=== PATIENT | male | born 1950 | race Caucasian/White ===

== ENCOUNTER 2019-12-31 15:02 | Outpatient (CLI) | payer MEDICARE ==
[~2019-12-31 15:02] MED LIST: ATOR20TA66 PO; CETI-90 PO; FLO0.4C PO; KEP500T PO; METO100T14 PO; POTA10TA36 PO
== END 2019-12-31 23:59 | disposition home or self-care (01) ==
LOC: RAD 15:02
PROVIDERS: ATTEND Psychiatry & Neurology Neurology
DX: R13.12 Dysphagia, oropharyngeal phase (principal); R47.1 Dysarthria and anarthria; G20 Parkinson's disease
CPT/HCPCS: 74230

== ENCOUNTER 2021-05-19 09:20 | Day surgery (SDC) | payer MEDICARE ==
[~2021-05-19] VITALS: Ht 167.6 cm; Wt 75.0 kg
[~2021-05-19 09:20] MED LIST changes: -POTA10TA36 PO; +POTA10TA37 PO
[2021-05-19 10:30] VITALS: BP 115/68
[2021-05-19] MEDS ORDERED: RIVA1.5C30 PO (11:18)
[2021-05-19] MEDS ORDERED: SERT-433 PO (11:18)
[2021-05-19] MEDS ORDERED: ASPI-611 PO (11:18)
[2021-05-19] MEDS ORDERED: CARB1TAB24 PO (11:18)
[2021-05-19] MEDS ORDERED: HYDR25TA4 PO (11:18)
[2021-05-19 12:14] VITALS: BP 129/73
[2021-05-19 13:18] LABS: GLUCOSE,CSF 65 MG/DL (40-75); TOTAL PROTEIN,CSF 71 MG/DL (30-60)
[2021-05-19 13:43] LABS: APPEARANCE,CSF CLEAR; CSF RBC 0 /CU MM (0); CSF SUPERNATANT COLOR COLORLESS; CSF VOLUME 36 ML; CSF WBC CT 1 /CU MM (0-5); TUBE# COUNTED 3
== END 2021-05-19 12:25 | disposition home or self-care (01) ==
LOC: SSTAY O 09:20
PROVIDERS: ATTEND Psychiatry & Neurology Neurology
DX: G91.2 (Idiopathic) normal pressure hydrocephalus (principal); Z20.822 Contact with and (suspected) exposure to COVID-19; Z79.899 Other long term (current) drug therapy
CPT/HCPCS: 36415; 62329; 82040; 82042; 82784; 82945; 83916; 84157; 86592; 86617; 87015; 87070; 87102; 87529; 87635; 89051; C9803; 88108

== ENCOUNTER 2021-12-19 01:28 | Inpatient (IN) | payer MEDICARE ==
[~2021-12-19] VITALS: Ht 167.6 cm; Wt 75.0 kg
[~2021-12-19 01:28] MED LIST changes: +ASPI-611 PO; -ATOR20TA66 PO; +CARB1TAB60 PO; +HYDR25TA4 PO; -KEP500T PO; -POTA10TA37 PO; +RIVA1.5C30 PO; +SERT-433 PO
[2021-12-19] MEDS ORDERED: normal saline 1000ML IV soln IVB ONE ×2 (03:40→04:35)
[2021-12-19 06:06] LABS: BASOPHILS % (AUTO) 0.6 % (0-1); EOSINOPHILS % (AUTO) 0.2 % (0-6); HEMATOCRIT 42.6 % (42.0-52.0); HEMOGLOBIN 14.7 g/dl (14.0-17.9); LYMPHOCYTES # (AUTO) 0.6 X10'3 (1.1-4.8); LYMPHOCYTES % (AUTO) 7.7 % (21-51); MEAN CORPUSCULAR HEMOGLOBIN 30.4 PG (27.0-31.0); MEAN CORPUSCULAR HGB CONC 34.4 g/dL (33.0-36.5); MEAN CORPUSCULAR VOLUME 88.4 FL (78-98); MEAN PLATELET VOLUME 9.1 FL (7.4-10.4); MONOCYTES # (AUTO) 0.4 X10'3 (0-0.9); MONOCYTES % (AUTO) 5.7 % (2-12); NEUTROPHILS # (AUTO) 6.3 X10'3 (1.8-7.7); NEUTROPHILS % (AUTO) 85.8 % (42-75); PLATELET COUNT 131 X10'3 (140-440); RED BLOOD COUNT 4.82 X10'6 (4.70-6.10); RED CELL DISTRIBUTION WIDTH 14.5 % (11.5-14.5); WHITE BLOOD COUNT 7.4 X10'3 (4.5-11.0)
[2021-12-19] MEDS ORDERED: pantoprazole 40mg IV 80 MG in normal saline 100ml IV soln 100 ML IV ONE (07:15)
[2021-12-19 07:21] LABS: ALANINE AMINOTRANSFERASE 17 U/L (12-78); ALBUMIN/GLOBULIN RATIO 0.9 (1.1-1.5); ALKALINE PHOSPHATASE 71 IU/L (46-116); ANION GAP 5 (8-16); ASPARTATE AMINO TRANSFERASE 27 U/L (10-37); BILIRUBIN,TOTAL 1.2 MG/DL (0.1-1.0); BLOOD UREA NITROGEN 18 MG/DL (7-18); BUN/CREATININE RATIO 20.5 (5.4-32.0); CALCIUM 8.2 MG/DL (8.5-10.1); CHLORIDE 108 MMOL/L (99-107); CREATININE 0.88 MG/DL (0.60-1.10); GLUCOSE 112 MG/DL (70-104); MAGNESIUM 2.3 MG/DL (1.5-2.4); SODIUM 143 MMOL/L (135-145); TOTAL CARBON DIOXIDE 29.9 MMOL/L (24-32); TOTAL PROTEIN 6.4 G/DL (6.4-8.2); eGFR 85 ML/MIN
[2021-12-19] MEDS ORDERED: potassium CL 10mEq/100ml bag 100 ML IV ONE (08:20)
[2021-12-19] MEDS ORDERED: mag hydrox/Alum hydrox/simeth 30ml oral suspension PO PRN (08:25)
[2021-12-19] MEDS ORDERED: ondansetron/PF 4mg/2ml inj IV PRN (08:25)
[2021-12-19] MEDS ORDERED: magnesium hydroxide 30ml (MOM) UD suspension PO PRN (08:25)
[2021-12-19] MEDS ORDERED: HYDROcodone/acetaminophen 5mg/325mg tablet PO PRN (08:25)
[2021-12-19] MEDS ORDERED: magnesium 4gm in 100ml NS 100 ML IV PRN (08:25)
[2021-12-19] MEDS ORDERED: potassium Cl 40MEQ/1/2NS 520ml 520 ML IV PRN (08:25)
[2021-12-19] MEDS ORDERED: morphine 2 MG/ML inj. syringe IV PRN ×2 (08:25)
[2021-12-19] MEDS ORDERED: potassium Cl 20 mEq SR tablet PO PRN (08:25)
[2021-12-19] MEDS ORDERED: ondansetron 4mg rapidly disintigrating tab PO PRN (08:25)
[2021-12-19] MEDS ORDERED: acetaminophen 325mg tablet PO PRN ×2 (08:25)
[2021-12-19] MEDS ORDERED: magnesium Cl slow-release 64mg tablet PO PRN (08:25)
[2021-12-19] MEDS: K and/or MAG REPLACEMENT MC SCH (09:45)
[2021-12-19] MEDS ORDERED: SERT-434 PO (10:10)
[2021-12-19 11:50] LABS: CLARITY,URINE CLEAR (Clear); COLOR,URINE YELLOW (Yellow); GLUCOSE, URINE NEGATIVE (Neg); KETONES,URINE TRACE mg/dl (Neg); LEUKOCYTE ESTERASE ,URINE NEGATIVE (Neg); NITRITES, URINE NEGATIVE (Neg); OCCULT BLOOD,URINE MODERATE (Neg); PROTEIN,URINE NEGATIVE (Neg); UROBILINOGEN,URINE 0.2 E.U/dL (0.2-1.0)
[2021-12-19 11:53] LABS: UA COLLECTION TYPE CONDOM CATH
[2021-12-19 11:55] LABS: MUCUS STRANDS FEW /LPF (Neg); SQUAMOUS EPITHELIAL CELL,UR FEW /LPF (FEW)
[2021-12-19 11:56] LABS: BACTERIA,URINE FEW /HPF (Neg); TRANSITIONAL EPI CELLS,URINE FEW /HPF; WBC,URINE NONE SEEN /HPF (0-4)
[2021-12-19] MEDS: HYDROcodone/acetaminophen 10/325mg tab PO PRN (16:33)
[2021-12-19] MEDS: docusate sod 100mg capsule PO SCH (20:00)
[2021-12-19] MEDS ORDERED: quetiapine 100mg tablet PO SCH (21:00)
[2021-12-19 21:50] VITALS: BP 141/81
[2021-12-19] MEDS: metoprolol tartrate 50mg tablet PO SCH (21:50)
[2021-12-19] MEDS: carbidoba-levodopa 25-100mg tablet PO SCH (23:37)
[2021-12-19] MEDS: sertraline 50mg tablet PO SCH (23:38)
--- NOTE | 2021-12-20 00:20 | NUR ---
PAGED DR. PETERSON REGARDING +BC GRAM + RODS AND COCCI IN CLUSTERS DRAWN 12/19 0513 RT AC ANAEROBIC BOTTLE.[address] PETERSON GOT THE MESSAGE.NO NEW ORDERS.
[2021-12-20 06:00] VITALS: BP 151/69
[2021-12-20 06:39] LABS: BASOPHILS % (AUTO) 0.8 % (0-1); EOSINOPHILS # (AUTO) 0.2 X10'3 (0-0.9); EOSINOPHILS % (AUTO) 3.4 % (0-6); LYMPHOCYTES # (AUTO) 0.9 X10'3 (1.1-4.8); LYMPHOCYTES % (AUTO) 21.5 % (21-51); MEAN CORPUSCULAR HEMOGLOBIN 30.3 PG (27.0-31.0); MEAN CORPUSCULAR VOLUME 88.9 FL (78-98); MEAN PLATELET VOLUME 8.2 FL (7.4-10.4); MONOCYTES # (AUTO) 0.5 X10'3 (0-0.9); MONOCYTES % (AUTO) 11.2 % (2-12); NEUTROPHILS # (AUTO) 2.8 X10'3 (1.8-7.7); NEUTROPHILS % (AUTO) 63.1 % (42-75); PLATELET COUNT 102 X10'3 (140-440); RED BLOOD COUNT 4.61 X10'6 (4.70-6.10); RED CELL DISTRIBUTION WIDTH 14.6 % (11.5-14.5); WHITE BLOOD COUNT 4.4 X10'3 (4.5-11.0)
[2021-12-20 06:55] LABS: ALANINE AMINOTRANSFERASE 6 U/L (12-78); ALBUMIN 2.9 G/DL (3.4-5.0); ALBUMIN/GLOBULIN RATIO 0.9 (1.1-1.5); ALKALINE PHOSPHATASE 66 IU/L (46-116); ANION GAP 5 (8-16); ASPARTATE AMINO TRANSFERASE 50 U/L (10-37); BILIRUBIN,TOTAL 1.5 MG/DL (0.1-1.0); BLOOD UREA NITROGEN 18 MG/DL (7-18); BUN/CREATININE RATIO 21.7 (5.4-32.0); CALCIUM 8.7 MG/DL (8.5-10.1); CHLORIDE 107 MMOL/L (99-107); CREATININE 0.83 MG/DL (0.60-1.10); GLUCOSE 95 MG/DL (70-104); POTASSIUM 3.1 MMOL/L (3.5-5.1); SODIUM 144 MMOL/L (135-145); TOTAL CARBON DIOXIDE 32.4 MMOL/L (24-32); eGFR > 90 ML/MIN
[2021-12-20] MEDS: K and/or MAG REPLACEMENT MC SCH ×2 (08:00→20:53)
[2021-12-20] MEDS: docusate sod 100mg capsule PO SCH ×2 (09:11→20:22)
[2021-12-20] MEDS: tamsulosin 0.4mg capsule PO SCH (09:12)
[2021-12-20] MEDS: aspirin 81mg, enteric-coated 1 TAB TABLET.DR PO SCH (09:12)
[2021-12-20] MEDS: carbidoba-levodopa 25-100mg tablet PO SCH ×2 (09:13→20:23)
[2021-12-20] MEDS: cetirizine 10mg tablet PO SCH (09:13)
[2021-12-20] MEDS: potassium Cl 20 mEq SR tablet PO PRN ×2 (09:14→20:22)
[2021-12-20] MEDS: metoprolol tartrate 50mg tablet PO SCH ×2 (10:08→20:00)
[2021-12-20] MEDS: CefTRIAXone/D5W-Rocephin 1gm 50 ML IV SCH (11:11)
[2021-12-20 12:00] VITALS: BP 171/81
[2021-12-20 12:23] VITALS: BP 140/71
[2021-12-20] MEDS: HYDROcodone/acetaminophen 10/325mg tab PO PRN (13:03)
--- NOTE | 2021-12-20 15:30 | NUR ---
Student documentation: I have reviewed and agree with all interventions, assessments performed and documented by Toni MCNEAL Student.
[2021-12-20 18:00] VITALS: BP 137/62
--- NOTE | 2021-12-20 18:14 | NUR ---
Problems reprioritized. Patient report given, questions answered & plan of care reviewed with BRANDI Leahy.
[2021-12-20] MEDS: sertraline 50mg tablet PO SCH (20:23)
[2021-12-20] MEDS ORDERED: quetiapine 100mg tablet PO SCH (21:00)
[2021-12-20 22:00] VITALS: BP 137/62
--- NOTE | 2021-12-20 23:08 | NUR ---
Student documentation: I have reviewed interventions, assessments performed and documented by Noemi Lau
[2021-12-21] MEDS: HYDROcodone/acetaminophen 10/325mg tab PO PRN ×2 (02:44→16:37)
[2021-12-21 04:54] VITALS: BP 147/73
--- NOTE | 2021-12-21 04:54 | NUR ---
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
--- NOTE | 2021-12-21 06:32 | NUR ---
Patient in room [facility]. I have received report from BRANDI TO and had the opportunity to ask questions and assume patient care.
[2021-12-21 06:53] LABS: EOSINOPHILS # (AUTO) 0.2 X10'3 (0-0.9); EOSINOPHILS % (AUTO) 4.3 % (0-6); HEMATOCRIT 40.2 % (42.0-52.0); HEMOGLOBIN 13.9 g/dl (14.0-17.9); LYMPHOCYTES # (AUTO) 1.2 X10'3 (1.1-4.8); LYMPHOCYTES % (AUTO) 26.3 % (21-51); MEAN CORPUSCULAR HEMOGLOBIN 30.8 PG (27.0-31.0); MEAN CORPUSCULAR HGB CONC 34.5 g/dL (33.0-36.5); MEAN CORPUSCULAR VOLUME 89.4 FL (78-98); MEAN PLATELET VOLUME 8.2 FL (7.4-10.4); MONOCYTES # (AUTO) 0.5 X10'3 (0-0.9); NEUTROPHILS # (AUTO) 2.7 X10'3 (1.8-7.7); NEUTROPHILS % (AUTO) 58.4 % (42-75); PLATELET COUNT 101 X10'3 (140-440); RED CELL DISTRIBUTION WIDTH 14.4 % (11.5-14.5); WHITE BLOOD COUNT 4.6 X10'3 (4.5-11.0)
[2021-12-21 07:12] VITALS: BP 98/55
[2021-12-21 07:15] LABS: ALANINE AMINOTRANSFERASE 6 U/L (12-78); ALBUMIN 2.6 G/DL (3.4-5.0); ALBUMIN/GLOBULIN RATIO 0.8 (1.1-1.5); ALKALINE PHOSPHATASE 67 IU/L (46-116); ANION GAP 5 (8-16); ASPARTATE AMINO TRANSFERASE 51 U/L (10-37); BILIRUBIN,TOTAL 1.1 MG/DL (0.1-1.0); BLOOD UREA NITROGEN 22 MG/DL (7-18); BUN/CREATININE RATIO 27.5 (5.4-32.0); CALCIUM 8.5 MG/DL (8.5-10.1); CHLORIDE 107 MMOL/L (99-107); GLUCOSE 92 MG/DL (70-104); POTASSIUM 3.1 MMOL/L (3.5-5.1); SODIUM 142 MMOL/L (135-145); TOTAL CARBON DIOXIDE 30.1 MMOL/L (24-32); TOTAL PROTEIN 5.7 G/DL (6.4-8.2); eGFR > 90 ML/MIN
[2021-12-21] MEDS: tamsulosin 0.4mg capsule PO SCH (07:58)
[2021-12-21] MEDS: docusate sod 100mg capsule PO SCH ×2 (07:58→21:07)
[2021-12-21] MEDS: potassium Cl 20 mEq SR tablet PO PRN ×3 (07:58→21:28)
[2021-12-21] MEDS: aspirin 81mg, enteric-coated 1 TAB TABLET.DR PO SCH (07:58)
[2021-12-21] MEDS: cetirizine 10mg tablet PO SCH (07:59)
[2021-12-21] MEDS: metoprolol tartrate 50mg tablet PO SCH ×2 (08:00→20:00)
[2021-12-21] MEDS: CefTRIAXone/D5W-Rocephin 1gm 50 ML IV SCH (08:00)
[2021-12-21] MEDS: K and/or MAG REPLACEMENT MC SCH ×2 (08:00→20:00)
[2021-12-21] MEDS: carbidoba-levodopa 25-100mg tablet PO SCH ×2 (08:39→21:06)
[2021-12-21 11:00] VITALS: BP 151/62
--- NOTE | 2021-12-21 17:55 | NUR ---
PAGER ID: [phone] MESSAGE: [id number]- Hoang Almaguer- pt restless, agitated, attempting to climb out of bed and being combative with spouse and daughter. any new orders-?- Carla [phone]
[2021-12-21] MEDS: LORazepam 2 mg/ml vial IV PRN (18:02)
--- NOTE | 2021-12-21 18:17 | NUR ---
Problems reprioritized. Patient report given, questions answered & plan of care reviewed with MAGED Boswell.
--- NOTE | 2021-12-21 18:20 | NUR ---
Patient in room [facility] 357. I have received report from Maylin PAZ and had the opportunity to ask questions and assume patient care.
[2021-12-21] MEDS: sertraline 50mg tablet PO SCH (21:07)
[2021-12-21] MEDS ORDERED: QUEtiapine 25mg tablet PO ONE (21:25)
[2021-12-21 22:00] VITALS: BP 134/86
[2021-12-22 06:00] VITALS: BP 92/68
--- NOTE | 2021-12-22 06:38 | NUR ---
Patient in room [facility] 357. I have received report from Trinh PAZ and had the opportunity to ask questions and assume patient care.
--- NOTE | 2021-12-22 06:38 | NUR ---
Problems reprioritized. Patient report given, questions answered & plan of care reviewed with Vale PAZ.
[2021-12-22 06:53] LABS: BASOPHILS % (AUTO) 0.9 % (0-1); EOSINOPHILS # (AUTO) 0.2 X10'3 (0-0.9); EOSINOPHILS % (AUTO) 4.5 % (0-6); HEMATOCRIT 44.2 % (42.0-52.0); HEMOGLOBIN 15.3 g/dl (14.0-17.9); LYMPHOCYTES # (AUTO) 0.9 X10'3 (1.1-4.8); MEAN CORPUSCULAR HEMOGLOBIN 30.8 PG (27.0-31.0); MEAN CORPUSCULAR HGB CONC 34.5 g/dL (33.0-36.5); MEAN CORPUSCULAR VOLUME 89.2 FL (78-98); MEAN PLATELET VOLUME 8.2 FL (7.4-10.4); MONOCYTES # (AUTO) 0.4 X10'3 (0-0.9); MONOCYTES % (AUTO) 10.4 % (2-12); NEUTROPHILS # (AUTO) 2.6 X10'3 (1.8-7.7); NEUTROPHILS % (AUTO) 63.2 % (42-75); PLATELET COUNT 109 X10'3 (140-440); RED BLOOD COUNT 4.96 X10'6 (4.70-6.10); RED CELL DISTRIBUTION WIDTH 14.4 % (11.5-14.5); WHITE BLOOD COUNT 4.1 X10'3 (4.5-11.0)
[2021-12-22 07:29] LABS: ALANINE AMINOTRANSFERASE 10 U/L (12-78); ALBUMIN 3.1 G/DL (3.4-5.0); ALBUMIN/GLOBULIN RATIO 0.9 (1.1-1.5); ALKALINE PHOSPHATASE 81 IU/L (46-116); ANION GAP 4 (8-16); ASPARTATE AMINO TRANSFERASE 53 U/L (10-37); BILIRUBIN,TOTAL 1.2 MG/DL (0.1-1.0); BLOOD UREA NITROGEN 18 MG/DL (7-18); BUN/CREATININE RATIO 24.7 (5.4-32.0); CALCIUM 8.7 MG/DL (8.5-10.1); CHLORIDE 104 MMOL/L (99-107); CREATININE 0.73 MG/DL (0.60-1.10); GLUCOSE 92 MG/DL (70-104); POTASSIUM 3.4 MMOL/L (3.5-5.1); SODIUM 141 MMOL/L (135-145); TOTAL CARBON DIOXIDE 33.3 MMOL/L (24-32); TOTAL PROTEIN 6.6 G/DL (6.4-8.2); eGFR > 90 ML/MIN
[2021-12-22] MEDS: CefTRIAXone/D5W-Rocephin 1gm 50 ML IV SCH ×2 (07:33→09:30)
[2021-12-22] MEDS: tamsulosin 0.4mg capsule PO SCH (07:42)
[2021-12-22] MEDS: cetirizine 10mg tablet PO SCH (07:42)
[2021-12-22] MEDS: carbidoba-levodopa 25-100mg tablet PO SCH ×2 (07:43→22:02)
[2021-12-22] MEDS: docusate sod 100mg capsule PO SCH ×2 (07:44→22:00)
[2021-12-22] MEDS: aspirin 81mg, enteric-coated 1 TAB TABLET.DR PO SCH (07:44)
[2021-12-22] MEDS: metoprolol tartrate 50mg tablet PO SCH ×2 (07:44→22:02)
[2021-12-22] MEDS: K and/or MAG REPLACEMENT MC SCH ×3 (08:00→22:00)
[2021-12-22 10:00] VITALS: BP 156/73
[2021-12-22] MEDS: LORazepam 2 mg/ml vial IV PRN (13:38)
--- NOTE | 2021-12-22 14:03 | NUR ---
PAGER ID: [phone] MESSAGE: [id number]B Tripp Pt. states unable to go to bathroom since , not able to void can we have an order for a enema. Please and thank you!
[2021-12-22] MEDS ORDERED: mineral oil 133ml enema RC PRN (14:05)
[2021-12-22] MEDS ORDERED: QUEtiapine 25mg tablet PO ONE (15:05)
--- NOTE | 2021-12-22 17:45 | NUR ---
Called customer service technician to let them know tele order had been DC, took tele monitor off the pt.
[2021-12-22 18:00] VITALS: BP 137/68
[2021-12-22] MEDS ORDERED: magnesium 4gm in 100ml NS 100 ML IV PRN (18:20)
[2021-12-22] MEDS ORDERED: magnesium Cl slow-release 64mg tablet PO PRN (18:20)
[2021-12-22] MEDS ORDERED: potassium Cl 40MEQ/1/2NS 520ml 520 ML IV PRN (18:20)
[2021-12-22] MEDS ORDERED: potassium Cl 20 mEq SR tablet PO PRN (18:20)
--- NOTE | 2021-12-22 19:06 | NUR ---
Problems reprioritized. Patient report given, questions answered & plan of care reviewed with Jennifer PAZ.
[2021-12-22] MEDS ORDERED: QUEtiapine 25mg tablet PO SCH (21:00)
[2021-12-22 22:00] VITALS: BP 113/46
[2021-12-22] MEDS: potassium Cl 20 mEq SR tablet PO PRN (22:00)
[2021-12-22] MEDS: sertraline 50mg tablet PO SCH (22:03)
[2021-12-23] MEDS: potassium Cl 20 mEq SR tablet PO PRN (01:59)
[2021-12-23 06:00] VITALS: BP 158/72
[2021-12-23 07:02] LABS: BASOPHILS % (AUTO) 0.9 % (0-1); EOSINOPHILS # (AUTO) 0.1 X10'3 (0-0.9); HEMATOCRIT 42.7 % (42.0-52.0); HEMOGLOBIN 14.7 g/dl (14.0-17.9); LYMPHOCYTES # (AUTO) 0.6 X10'3 (1.1-4.8); LYMPHOCYTES % (AUTO) 13.5 % (21-51); MEAN CORPUSCULAR HEMOGLOBIN 30.7 PG (27.0-31.0); MEAN CORPUSCULAR HGB CONC 34.5 g/dL (33.0-36.5); MEAN CORPUSCULAR VOLUME 88.8 FL (78-98); MEAN PLATELET VOLUME 8.3 FL (7.4-10.4); MONOCYTES # (AUTO) 0.4 X10'3 (0-0.9); MONOCYTES % (AUTO) 9.6 % (2-12); NEUTROPHILS # (AUTO) 3.4 X10'3 (1.8-7.7); PLATELET COUNT 117 X10'3 (140-440); RED CELL DISTRIBUTION WIDTH 14.6 % (11.5-14.5); WHITE BLOOD COUNT 4.6 X10'3 (4.5-11.0)
[2021-12-23 07:20] LABS: ALANINE AMINOTRANSFERASE 10 U/L (12-78); ALBUMIN/GLOBULIN RATIO 0.9 (1.1-1.5); ALKALINE PHOSPHATASE 74 IU/L (46-116); ANION GAP 4 (8-16); ASPARTATE AMINO TRANSFERASE 64 U/L (10-37); BILIRUBIN,TOTAL 1.8 MG/DL (0.1-1.0); BLOOD UREA NITROGEN 14 MG/DL (7-18); BUN/CREATININE RATIO 17.9 (5.4-32.0); CALCIUM 8.9 MG/DL (8.5-10.1); CHLORIDE 104 MMOL/L (99-107); CREATININE 0.78 MG/DL (0.60-1.10); GLUCOSE 85 MG/DL (70-104); MAGNESIUM 2.5 MG/DL (1.5-2.4); SODIUM 139 MMOL/L (135-145); TOTAL CARBON DIOXIDE 30.9 MMOL/L (24-32); TOTAL PROTEIN 6.4 G/DL (6.4-8.2); eGFR > 90 ML/MIN
[2021-12-23] MEDS: K and/or MAG REPLACEMENT MC SCH ×2 (08:00)
[2021-12-23] MEDS ORDERED: potassium Cl 20 mEq SR tablet PO SCH (08:00)
[2021-12-23] MEDS: cetirizine 10mg tablet PO SCH (08:07)
[2021-12-23] MEDS: tamsulosin 0.4mg capsule PO SCH (08:08)
[2021-12-23] MEDS: aspirin 81mg, enteric-coated 1 TAB TABLET.DR PO SCH (08:08)
[2021-12-23] MEDS: docusate sod 100mg capsule PO SCH (08:08)
[2021-12-23] MEDS: carbidoba-levodopa 25-100mg tablet PO SCH (08:08)
[2021-12-23] MEDS: metoprolol tartrate 50mg tablet PO SCH (08:09)
[2021-12-23 10:06] VITALS: BP 142/79
--- NOTE | 2021-12-23 11:09 | NUR ---
AGER ID: [phone] MESSAGE: JAX DEVIN GONZALEZSushant RM 357B- PATIENT SET TO DC TO [facility] @ 1589 NEED PAPER ORDERS SIGNED AND CHEST XRAY ORDERED. PLEASE CALL THANK YOU NAMRATA Smith
--- NOTE | 2021-12-23 11:31 | NUR ---
promotional table spacer promotional table spacer Page Sent promotional table spacer PAGER ID: [phone] MESSAGE: RE carolina Almaguer rm 357B receiving facility does not require Covid test, do you still want me to get one done as you ordered? Thank you, Zackery PAZ
--- NOTE | 2021-12-23 11:35 | NUR ---
promotional table spacer promotional table spacer Page Sent promotional table spacer PAGER ID: [phone] MESSAGE: JAX Almaguer rm 357B couple of pages are missing your signature
== END 2021-12-23 13:29 | disposition hospice, inpatient (51) | DRG 57 ==
LOC: ER 01:28 → ED HOLD 08:25 → SUR 3N 22:35
PROVIDERS: ADMIT Family Medicine; ATTEND Family Medicine
DX: G31.83 Neurocognitive disorder with Lewy bodies (principal); F02.C18 Dementia in other diseases classified elsewhere, severe, with other behavioral disturbance; F05 Delirium due to known physiological condition; R78.81 Bacteremia; Z66 Do not resuscitate; Z51.5 Encounter for palliative care; R62.7 Adult failure to thrive; N40.0 Benign prostatic hyperplasia without lower urinary tract symptoms; E87.6 Hypokalemia; R00.1 Bradycardia, unspecified; F32.A Depression, unspecified; G20 Parkinson's disease; I10 Essential (primary) hypertension; J30.9 Allergic rhinitis, unspecified; R26.2 Difficulty in walking, not elsewhere classified; Z68.26 Body mass index [BMI] 26.0-26.9, adult; Z91.14 Patient's other noncompliance with medication regimen; Z91.012 Allergy to eggs; Z91.014 Allergy to mammalian meats; Z91.018 Allergy to other foods
CPT/HCPCS: 36415; 70450; 71045; 80053; 81001; 83605; 83735; 84443; 84484; 85025; 87040; 87077; 87081; 87186; 92508; 92616; 93005; 96374; 97110; 97116; 97161; 97530; 99285; A4349; A4353; A4649; A6213; C1758; C9113; G0378; J0696; J2060; J2270; J3480; J3490; J7030